=== PATIENT | female | born 1965 | race Hispanic/Latino ===

== ENCOUNTER 2021-11-13 17:45 | Inpatient (IN) | payer SELFPAY ==
[2021-11-13 19:41] LABS: #Monocytes 0.3 thou/uL (0.11-0.59); #Neutrophils 4.6 thou/uL (1.40-6.50); %Basophils 0.2 % (0.0-1.0); %Eosinophils 0.5 % (0.0-10.0); %Lymphocytes 16.4 % (21.0-51.0); %Monocytes 5.3 % (0.0-10.0); %Neutrophils 77.6 % (42.0-75.0); Hemoglobin 5.7 g/dL (12.0-16.0); Mean Corpuscular HGB CONC 29.1 g/dL (32.0-36.0); Mean Corpuscular Volume 72.1 fL (78.0-98.0); Mean Platelet Volume 8.9 fL (7.4-10.4); Platelet Count 112 thou/uL (130-400); RBC Distribution Width 16.7 % (11.5-14.5); White Blood Cell (WBC) Count 5.9 thou/uL (4.8-10.8)
[2021-11-13 19:54] LABS: Anion Gap 14 mmol/L (10-20); BUN (Urea Nitrogen) 6 mg/dL (9.8-20.1); Calc. Creatinine Clearance 0 mL/min (70-130); Calcium 9.4 mg/dL (7.8-10.44); Carbon Dioxide 20 mmol/L (22-29); Chloride 106 mmol/L (98-107); Glucose 114 mg/dL (70-105); Potassium 3.5 mmol/L (3.5-5.1); Sodium 136 mmol/L (136-145)
[2021-11-13 19:58] LABS: Hypochromia MODERATE=16-30 cells (100X) (0-5/hpf); MDiff Complete? YES; Microcytosis SLIGHT = 6-15 cells (100X) (0-5/hpf); Platelet Morphology Comment Appears Decreased; Polychromasia SLIGHT = 2-3 cells (100X) (0-2/hpf); Stomatocytes SLIGHT = 2-5 cells (100X) (0-1/hpf)
[2021-11-13 21:15] LABS: INR-International Normal Ratio 1.2; Prothrombin Time 15.7 sec (12.0-14.7)
[2021-11-13 21:16] LABS: PTT 34.7 sec (22.9-36.1)
[2021-11-13] MEDS ORDERED: Acetaminophen 650 MG Suppository PR PRN (21:32)
[2021-11-13] MEDS ORDERED: HumaLOG 300 UNITS/3 ML VIAL SC PRN (21:32)
[2021-11-13] MEDS ORDERED: Ondansetron ODT 4 MG TAB PO PRN (21:32)
[2021-11-13] MEDS ORDERED: Ondansetron PF 4 MG/2 ML Vial IVP PRN (21:32)
[2021-11-13] MEDS ORDERED: Dextrose 5% in Water 1,000 ML IV PRN (21:32)
[2021-11-13] MEDS ORDERED: Dextrose 50% Abboject 50 ML SYRINGE SLOW IVP PRN (21:32)
[2021-11-13] MEDS ORDERED: Acetaminophen 325 MG TAB PO PRN (21:32)
[2021-11-14 06:19] LABS: #Lymphocytes 1.2 thou/uL (1.20-3.40); #Monocytes 0.3 thou/uL (0.11-0.59); #Neutrophils 2.7 thou/uL (1.40-6.50); %Eosinophils 1.1 % (0.0-10.0); %Lymphocytes 29.3 % (21.0-51.0); %Monocytes 6.6 % (0.0-10.0); Hemoglobin 6.4 g/dL (12.0-16.0); Mean Corpuscular HGB CONC 30.6 g/dL (32.0-36.0); Mean Platelet Volume 8.4 fL (7.4-10.4); Platelet Count 88 thou/uL (130-400); RBC Distribution Width 17.8 % (11.5-14.5); Red Blood Cell (RBC) Count 2.78 mill/uL (4.20-5.40); White Blood Cell (WBC) Count 4.2 thou/uL (4.8-10.8)
[2021-11-14 06:30] LABS: Anion Gap 11 mmol/L (10-20); BUN (Urea Nitrogen) 8 mg/dL (9.8-20.1); Calc. Creatinine Clearance 114 mL/min (70-130); Carbon Dioxide 23 mmol/L (22-29); Chloride 108 mmol/L (98-107); Glucose 125 mg/dL (70-105); Iron 50 ug/dL (50-170); Iron Binding Capacity, Total 549 mcg/dL (265-497); Iron Binding Capacity, Total 574 mcg/dL (265-497); Potassium 3.7 mmol/L (3.5-5.1); Sodium 138 mmol/L (136-145)
[2021-11-14 06:31] LABS: Iron 49 ug/dL (50-170)
[2021-11-14 08:40] VITALS: BMI 26.6
[2021-11-14 10:59] LABS: Reticulocyte Count 2.6 % (0.5-1.5)
[2021-11-14] MEDS ORDERED: IRON SUCROSE COMPLEX 100 MG/5 ML SLOW IVP SCH (11:00)
[2021-11-14 11:14] LABS: Hemoglobin 6.8 g/dL (12.0-16.0); Mean Corpuscular HGB CONC 30.7 g/dL (32.0-36.0); Mean Corpuscular Volume 74.8 fL (78.0-98.0); Mean Platelet Volume 8.9 fL (7.4-10.4); Platelet Count 104 thou/uL (130-400); Red Blood Cell (RBC) Count 2.96 mill/uL (4.20-5.40); White Blood Cell (WBC) Count 3.9 thou/uL (4.8-10.8)
[2021-11-14 11:47] LABS: Band 2 % (5-11); Eosinophils 1 % (0-10); Hypochromia SLIGHT = 6-15 cells (100X) (0-5/hpf); Lymphocytes 26 % (21-51); MDiff Complete? YES; Metamyelocyte 1 % (0-0); Microcytosis SLIGHT = 6-15 cells (100X) (0-5/hpf); Monocytes 5 % (0-10); Neutrophil 65 % (42-75); Platelet Morphology Comment Appears Decreased; Polychromasia SLIGHT = 2-3 cells (100X) (0-2/hpf)
[2021-11-14] MEDS ORDERED: Iron, Sodium Ferric Gluconate 125 MG, Admixture Fee 1 EACH in Sodium Chloride 0.9% 100 ML IVPB SCH (12:15)
[2021-11-14 15:32] LABS: SARS-CoV-2 PCR by NAA Not Detected (NotDetected)
[2021-11-14] MEDS ORDERED: GoLYTELY 4,000 ml Bottle PO SCH (17:00)
[2021-11-14] MEDS: Famotidine 20 MG TAB PO SCH (20:46)
[2021-11-15 04:54] LABS: ALT (SGPT) 21 U/L (8-55); AST (SGOT) 30 U/L (5-34); Albumin 3.4 g/dL (3.5-5.0); Alkaline Phosphatase 94 U/L (40-110); Anion Gap 13 mmol/L (10-20); BUN (Urea Nitrogen) 7 mg/dL (9.8-20.1); Bilirubin, Direct 0.5 mg/dL (0.1-0.3); Bilirubin, Total 1.1 mg/dL (0.2-1.2); Calc. Creatinine Clearance 103 mL/min (70-130); Calcium 9.2 mg/dL (7.8-10.44); Carbon Dioxide 24 mmol/L (22-29); Chloride 106 mmol/L (98-107); Globulin 4.6 g/dL (2.4-3.5); Glucose 128 mg/dL (70-105); Potassium 3.4 mmol/L (3.5-5.1); Sodium 140 mmol/L (136-145)
[2021-11-15 04:56] LABS: #Lymphocytes 0.9 thou/uL (1.20-3.40); #Monocytes 0.4 thou/uL (0.11-0.59); #Neutrophils 2.7 thou/uL (1.40-6.50); %Basophils 0.3 % (0.0-1.0); %Lymphocytes 22.6 % (21.0-51.0); %Monocytes 9.4 % (0.0-10.0); %Neutrophils 66.7 % (42.0-75.0); Hemoglobin 7.8 g/dL (12.0-16.0); Mean Corpuscular HGB CONC 30.1 g/dL (32.0-36.0); Mean Corpuscular Hemoglobin 23.4 pg (27.0-31.0); Mean Corpuscular Volume 77.9 fL (78.0-98.0); Mean Platelet Volume 8.4 fL (7.4-10.4); Platelet Count 95 thou/uL (130-400); RBC Distribution Width 18.7 % (11.5-14.5); Red Blood Cell (RBC) Count 3.33 mill/uL (4.20-5.40); White Blood Cell (WBC) Count 4.1 thou/uL (4.8-10.8)
[2021-11-15 05:14] LABS: HBCM Index 0.08 S/CO (0-0.79); HBSAg Index 0.22 S/CO (0-0.99); Hep A IgM AB Non-Reactive (NonReactive); Hep A IgM S/CO 0.14 S/CO (0-0.79); Hep B Surf Ag Non-Reactive S/CO (NonReactive); Hep C IgG Ab Non-Reactive (NonReactive); Hep C Index 0.25 S/CO (0-0.79); Hepatitis B Core IgM Abs Non-Reactive (NonReactive)
[2021-11-15] MEDS ORDERED: Promethazine HCl 25 MG/ML VIAL IVPB PRN (10:01)
[2021-11-15] MEDS ORDERED: Promethazine HCl 25 MG/ML VIAL IM PRN (10:01)
[2021-11-15] MEDS ORDERED: Ondansetron HCl/PF 4 MG/2 ML Vial IVP PRN (10:01)
[2021-11-15] MEDS: Famotidine 20 MG TAB PO SCH (10:27)
[2021-11-15] MEDS ORDERED: ISOVUE-370 76%-LOCM 1 ML ONE (11:30)
[2021-11-15] MEDS ORDERED: PROPOFOL 200 MG/20 ML VIAL ONE (13:17)
[2021-11-15] MEDS ORDERED: Lidocaine 1% PF 5 ML VIAL ONE (13:17)
[2021-11-15] MEDS: HumaLOG 300 UNITS/3 ML VIAL SC PRN (18:24)
[2021-11-16] MEDS: HumaLOG 300 UNITS/3 ML VIAL SC PRN ×2 (00:43→06:31)
[2021-11-16 05:51] LABS: #Basophils 0.1 thou/uL (0.0-0.2); #Eosinphils 0.1 thou/uL (0.0-0.7); #Monocytes 0.3 thou/uL (0.11-0.59); #Neutrophils 3.1 thou/uL (1.40-6.50); %Basophils 1.2 % (0.0-1.0); %Eosinophils 2.6 % (0.0-10.0); %Lymphocytes 21.8 % (21.0-51.0); %Monocytes 6.8 % (0.0-10.0); %Neutrophils 67.7 % (42.0-75.0); Hemoglobin 7.8 g/dL (12.0-16.0); Mean Corpuscular HGB CONC 32.1 g/dL (32.0-36.0); Mean Corpuscular Hemoglobin 24.9 pg (27.0-31.0); Mean Corpuscular Volume 77.8 fL (78.0-98.0); Mean Platelet Volume 8.9 fL (7.4-10.4); Platelet Count 93 thou/uL (130-400); RBC Distribution Width 19.3 % (11.5-14.5); Red Blood Cell (RBC) Count 3.14 mill/uL (4.20-5.40); White Blood Cell (WBC) Count 4.6 thou/uL (4.8-10.8)
[2021-11-16 06:22] LABS: HIV (1/2) Antibody/Antigen Non-Reactive (NonReactive); HIV 1/2 INDEX 0.08 S/CO (<1.00)
[2021-11-16] MEDS ORDERED: Pantoprazole 40 MG VIAL IVP SCH (09:00)
[2021-11-16 11:33] VITALS: BP 137/73; TEMP 98.3
[2021-11-16] MEDS ORDERED: Iron, Sodium Ferric Gluconate 250 MG in Sodium Chloride 0.9% 250 ML 250 ML IVPB SCH (13:30)
[2021-11-18 18:16] LABS: ANA Symphony (Qualitative) Negative (Negative); ANA Symphony (Quantitative) 0.4 Ratio (< 0.7 Negative); EliA Vaculitis New Method **** NEW METHOD ****; Mitochondrial Ab 1.8 U/mL (<4 Negative); dsDNA IgG Antibody 1.7 IU/mL (<10 Negative)
[2021-11-19 13:13] LABS: Smooth Muscle Total ABS 10 Units (0-19)
[2021-11-20 13:13] LABS: Alpha-1-Antitrypsin 152 mg/dL (101-187)
== END 2021-11-16 13:10 | disposition home or self-care (01) | DRG 812 ==
LOC: ERS 17:45 → NEURO 20:32 → OBSVTOIN 11-14 12:12
PROVIDERS: ADMIT Student in an Organized Health Care Education/Training Program; ATTEND Family Medicine
PROC: 30233N1 Transfusion of Nonautologous Red Blood Cells into Peripheral Vein, Percutaneous Approach (ICD-10-PCS; principal; 2021-11-13)
PROC: 06L38CZ Occlusion of Esophageal Vein with Extraluminal Device, Via Natural or Artificial Opening Endoscopic (ICD-10-PCS; 2021-11-15)
DX: D50.9 Iron deficiency anemia, unspecified (principal); I85.10 Secondary esophageal varices without bleeding; K76.6 Portal hypertension; Z20.822 Contact with and (suspected) exposure to COVID-19; E11.9 Type 2 diabetes mellitus without complications; D69.6 Thrombocytopenia, unspecified; K74.60 Unspecified cirrhosis of liver; I08.1 Rheumatic disorders of both mitral and tricuspid valves; Z79.84 Long term (current) use of oral hypoglycemic drugs; Z79.899 Other long term (current) drug therapy
CPT/HCPCS: 36415; 36416; 36430; 74177; 74183; 80048; 80053; 80074; 80076; 82103; 82104; 82105; 82274; 82390; 82607; 82728; 82746; 83516; 83540; 83550; 83615; 85025; 85046; 85060; 85610; 85730; 86038; 86225; 86850; 86900; 86901; 87389; 93306; 99284; C9113; G0378; J1815; J2704; J2916; J3490; P9016; Q9966; U0003; U0005

== ENCOUNTER 2023-05-14 06:46 | Emergency (ER) | payer OTHER, SELFPAY ==
[2023-05-14 07:22] LABS: #Monocytes 0.4 thou/uL (0.11-0.59); #Neutrophils 4.3 thou/uL (1.40-6.50); %Basophils 0.2 % (0.0-1.0); %Eosinophils 0.5 % (0.0-10.0); %Lymphocytes 21.3 % (21.0-51.0); %Monocytes 5.9 % (0.0-10.0); %Neutrophils 71.6 % (42.0-75.0); Hemoglobin 12.6 g/dL (12.0-16.0); Mean Corpuscular HGB CONC 36.2 g/dL (32.0-36.0); Mean Corpuscular Hemoglobin 33.8 pg (27.0-31.0); Mean Corpuscular Volume 93.3 fl (78.0-98.0); Mean Platelet Volume 10.7 fL (7.4-10.4); RBC Distribution Width 12.6 % (11.5-14.5); Red Blood Cell (RBC) Count 3.73 mill/uL (4.20-5.40)
[2023-05-14 07:24] LABS: Platelet Count 78 10x3/uL (130-400)
[2023-05-14] MEDS ORDERED: Ondansetron PF 4 MG/2 ML Vial ONE ×2 (07:38→11:09)
[2023-05-14] MEDS ORDERED: Morphine 4 MG/ML VIAL ONE (07:38)
[2023-05-14 07:43] LABS: ALT (SGPT) 31 U/L (8-55); AST (SGOT) 36 U/L (5-34); Alkaline Phosphatase 192 U/L (40-110); Anion Gap 15 mmol/L (10-20); BUN (Urea Nitrogen) 7 mg/dL (9.8-20.1); Calc. Creatinine Clearance 0 mL/min (70-130); Calcium 9.5 mg/dL (7.8-10.44); Carbon Dioxide 21 mmol/L (22-29); Chloride 102 mmol/L (98-107); Estimated GFR 104; Globulin 4.7 g/dL (2.4-3.5); Glucose 247 mg/dL (70-105); Lipase 35 U/L (8-78); Potassium 3.7 mmol/L (3.5-5.1); Protein, Total 8.7 g/dL (6.0-8.3); Sodium 134 mmol/L (136-145)
[2023-05-14] MEDS ORDERED: Iopamidol-370 76% 500 ML MDV (1 ML CHARGE) ONE (12:21)
[2023-05-14] MEDS ORDERED: diphenhydrAMINE 50 MG/ML VIAL ONE (12:54)
[2023-05-14] MEDS ORDERED: Metoclopramide HCl 10 MG/2 ML VIAL ONE (12:54)
[2023-05-14] MEDS ORDERED: diphenhydrAMINE 50 MG CAP ONE (12:54)
== END 2023-05-14 14:24 | disposition home or self-care (01) ==
LOC: ERS 06:46
DX: R10.11 Right upper quadrant pain (principal); E11.9 Type 2 diabetes mellitus without complications
CPT/HCPCS: 36415; 74177; 76705; 80053; 83690; 85025; 96361; 96365; 96375; 96376; J1200; J2270; J2405; J2765; Q9967

== ENCOUNTER 2023-11-14 16:26 | Emergency (ER) | payer OTHER, SELFPAY | END 2023-11-14 17:53 | disposition home or self-care (01) | LOC: ERS 16:26 | DX: L03.116 Cellulitis of left lower limb (principal); E11.9 Type 2 diabetes mellitus without complications; Z79.899 Other long term (current) drug therapy | CPT/HCPCS: 99283 ==

== ENCOUNTER 2023-12-23 09:48 | Outpatient (CLI) | payer OTHER | END 2023-12-23 09:49 | disposition home or self-care (01) | LOC: BICULT 09:48 | PROVIDERS: ATTEND Internal Medicine Gastroenterology | DX: K74.60 Unspecified cirrhosis of liver (principal); K76.89 Other specified diseases of liver; R16.1 Splenomegaly, not elsewhere classified | CPT/HCPCS: 76705 ==

== ENCOUNTER 2024-03-31 12:49 | Observation (INO) | payer OTHER ==
[~2024-03-31 12:49] MED LIST: Iopamidol-370 76% 500 ML MDV (1 ML CHARGE) ONE
[2024-03-31] MEDS ORDERED: Sodium Chloride 0.9% 100 ML ONE (13:56)
[2024-03-31] MEDS ORDERED: cefTRIAXone (ROCEPHIN) 1 GM VIAL ONE (13:57)
[2024-03-31] MEDS ORDERED: Pantoprazole 80 MG, Admixture Fee 1 EACH in Sodium Chloride 0.9% 100 ML IVPB SCH (14:00)
[2024-03-31] MEDS ORDERED: Octreotide Acetate 1,250 MCG in Sodium Chloride 0.9% 250 ML 250 ML IVPB SCH (14:00)
[2024-03-31] MEDS ORDERED: Ondansetron PF 4 MG/2 ML Vial ONE ×2 (14:03→17:16)
[2024-03-31 14:10] LABS: #Basophils Less than 0.03 10x3/uL (0.0-0.2); %Eosinophils 0.7 % (0.0-10.0); %Lymphocytes 11.2 % (21.0-51.0); %Monocytes 5.1 % (0.0-10.0); %Neutrophils 82.6 % (42.0-75.0); Hematocrit 38.8 % (36.0-47.0); Hemoglobin 14.4 g/dL (12.0-16.0); Mean Corpuscular HGB CONC 37.1 g/dL (32.0-36.0); Mean Corpuscular Hemoglobin 34.6 pg (27.0-31.0); Mean Corpuscular Volume 93.3 fL (78.0-98.0); Mean Platelet Volume 10.7 fL (7.4-10.4); Platelet Count 90 10x3/uL (130-400); RBC Distribution Width 12.3 % (11.5-14.5); Red Blood Cell (RBC) Count 4.16 mill/uL (4.20-5.40)
[2024-03-31 14:16] LABS: INR-International Normal Ratio 1.2; PTT 33.5 sec (22.9-36.1); Prothrombin Time 14.8 sec (12.0-14.7)
[2024-03-31 14:30] LABS: Platelet Adequacy Comment Platelets Decreased
[2024-03-31] MEDS ORDERED: Morphine 4 MG/ML VIAL ONE (14:50)
[2024-03-31 15:14] LABS: Globulin 5.1 g/dL (2.4-3.5)
[2024-03-31 15:18] LABS: ALT (SGPT) 35 U/L (8-55); AST (SGOT) 43 U/L (5-34); Albumin 3.6 g/dL (3.5-5.0); Alkaline Phosphatase 172 U/L (40-110); Anion Gap 16 mmol/L (10-20); BUN (Urea Nitrogen) 15 mg/dL (9.8-20.1); Bilirubin, Total 1.5 mg/dL (0.2-1.2); Calc. Creatinine Clearance 0 mL/min (70-130); Calcium 9.2 mg/dL (7.8-10.44); Carbon Dioxide 20 mmol/L (22-29); Chloride 104 mmol/L (98-107); Estimated GFR 103; Glucose 312 mg/dL (70-105); Lipase 38 U/L (8-78); Potassium 3.8 mmol/L (3.5-5.1); Protein, Total 8.7 g/dL (6.0-8.3); Sodium 136 mmol/L (136-145)
[2024-03-31] MEDS ORDERED: Acetaminophen 650 MG Suppository PR PRN (17:20)
[2024-03-31] MEDS ORDERED: Ondansetron ODT 4 MG TAB PO PRN (17:20)
[2024-03-31 17:47] LABS: Hematocrit 38.6 % (36.0-47.0); Hemoglobin 13.9 g/dL (12.0-16.0)
[2024-03-31] MEDS ORDERED: Dextrose 5% in Water 1,000 ML IV PRN (18:21)
[2024-03-31] MEDS ORDERED: Dextrose 50% Abboject 50 ML SYRINGE SLOW IVP PRN (18:21)
[2024-03-31] MEDS ORDERED: Glucagon 1 MG/ML KIT IM PRN (18:21)
[2024-03-31 18:54] LABS: Hemoglobin A1c 10.7 % (4.0-6.0)
[2024-03-31 19:55] VITALS: BMI 23.3
[2024-03-31] MEDS: Ondansetron PF 4 MG/2 ML Vial IVP PRN (21:11)
[2024-03-31] MEDS: Acetaminophen 325 MG TAB PO PRN (21:12)
[2024-03-31] MEDS: Sodium Chloride 0.9% 1,000 ML IV SCH (21:13)
[2024-03-31] MEDS ORDERED: HumaLOG 300 UNITS/3 ML VIAL SC PRN ×2 (23:19)
[2024-04-01] MEDS: Pantoprazole 80 MG in Sodium Chloride 0.9% 100 ML IVPB SCH (00:58)
[2024-04-01] MEDS ORDERED: Octreotide Acetate 1,250 MCG in Sodium Chloride 0.9% 250 ML 250 ML IVPB SCH (02:00)
[2024-04-01 05:00] LABS: #Basophils Less than 0.03 10x3/uL (0.0-0.2); %Eosinophils 1.6 % (0.0-10.0); %Lymphocytes 28.7 % (21.0-51.0); %Monocytes 6.5 % (0.0-10.0); %Neutrophils 62.9 % (42.0-75.0); Hemoglobin 12.3 g/dL (12.0-16.0); Mean Corpuscular HGB CONC 36.2 g/dL (32.0-36.0); Mean Corpuscular Hemoglobin 34.7 pg (27.0-31.0); Mean Platelet Volume 10.8 fL (7.4-10.4); Platelet Count 64 10x3/uL (130-400); RBC Distribution Width 12.5 % (11.5-14.5); Red Blood Cell (RBC) Count 3.54 mill/uL (4.20-5.40)
[2024-04-01 05:09] LABS: Anion Gap 13 mmol/L (10-20); BUN (Urea Nitrogen) 14 mg/dL (9.8-20.1); Calc. Creatinine Clearance 87 mL/min (70-130); Calcium 8.1 mg/dL (7.8-10.44); Carbon Dioxide 20 mmol/L (22-29); Chloride 108 mmol/L (98-107); Estimated GFR 103; Glucose 219 mg/dL (70-105); Magnesium 1.5 mg/dL (1.6-2.6); Potassium 3.3 mmol/L (3.5-5.1); Sodium 138 mmol/L (136-145)
[2024-04-01] MEDS: Sodium Chloride 0.9% 500 ML IV SCH (05:47)
[2024-04-01] MEDS: Magnesium 2 GM/50 ML(in water) 2 GM in Premix 1 BAG IVPB SCH (05:47)
[2024-04-01] MEDS: Potassium Chloride 20 MEQ in Premix 1 BAG IVPB SCH (06:12)
[2024-04-01] MEDS ORDERED: Pantoprazole 80 MG, Admixture Fee 1 EACH in Sodium Chloride 0.9% 100 ML IVPB SCH (07:15)
[2024-04-01 07:54] VITALS: BMI 23.3
[2024-04-01] MEDS ORDERED: PROPOFOL 20 ML ONE (09:15)
[2024-04-01 16:06] VITALS: BP 103/55; TEMP 98.6
[2024-04-01] MEDS: Alogliptin 6.25 MG TAB PO SCH (16:47)
[2024-04-01] MEDS: metFORMIN 500 MG TAB PO SCH (16:48)
[2024-04-01] MEDS ORDERED: [UNRECOGNIZED DRUG - OTHER] PO SCH (17:00)
[2024-04-01] MEDS ORDERED: SITAGLIPTIN PHOS PO SCH (17:00)
[2024-04-01] MEDS ORDERED: METFORMIN HCL PO SCH (17:00)
[2024-04-01 19:22] LABS: Magnesium 1.9 mg/dL (1.6-2.6); Potassium 3.8 mmol/L (3.5-5.1)
[2024-04-01] MEDS ORDERED: glipiZIDE 10 MG TAB PO SCH (21:00)
[2024-04-02] MEDS ORDERED: Ferrous Sulfate 325 MG TAB PO SCH (08:00)
[2024-04-02] MEDS ORDERED: Non-Formulary Item 1 EACH (Ferrous Sulfate [Ferrous Sulfate] 325 MG Tab) PO SCH (09:00)
[2024-04-02] MEDS ORDERED: Nadolol 40 MG TAB PO SCH (09:00)
[2024-04-02] MEDS ORDERED: Pantoprazole DR 40 MG TAB PO SCH (09:00)
== END 2024-04-01 19:09 | disposition home or self-care (01) ==
LOC: ERS 12:49 → 2NO 17:28 → INTOOBSV 17:28
PROVIDERS: ADMIT Internal Medicine; ATTEND Family Medicine
PROC: 0DJ08ZZ Inspection of Upper Intestinal Tract, Via Natural or Artificial Opening Endoscopic (ICD-10-PCS; principal; 2024-04-01)
PROC: B246ZZZ Ultrasonography of Right and Left Heart (ICD-10-PCS; 2024-04-01)
DX: I85.10 Secondary esophageal varices without bleeding (principal); K75.81 Nonalcoholic steatohepatitis (NASH); K74.60 Unspecified cirrhosis of liver; R01.1 Cardiac murmur, unspecified; K92.0 Hematemesis; K76.6 Portal hypertension; D69.6 Thrombocytopenia, unspecified; K31.89 Other diseases of stomach and duodenum; K22.10 Ulcer of esophagus without bleeding; E11.9 Type 2 diabetes mellitus without complications; D64.9 Anemia, unspecified; Z90.49 Acquired absence of other specified parts of digestive tract; Z79.84 Long term (current) use of oral hypoglycemic drugs; Z79.899 Other long term (current) drug therapy; Z87.59 Personal history of other complications of pregnancy, childbirth and the puerperium
CPT/HCPCS: 36415; 36416; 74177; 80048; 80053; 83036; 83690; 83735; 83880; 85025; 85610; 85730; 86850; 86900; 86901; 93005; 93306; 94760; C9113; J0696; J2270; J2354; J2405; J2704; J3475; J3480; J3490; J7030; J7050; Q9967

== ENCOUNTER 2024-11-29 07:55 | Outpatient (CLI) | payer OTHER | END 2024-11-29 07:56 | disposition home or self-care (01) | LOC: ULT 07:55 | PROVIDERS: ATTEND Physician Assistant Medical | DX: I85.00 Esophageal varices without bleeding (principal); K74.60 Unspecified cirrhosis of liver; R16.1 Splenomegaly, not elsewhere classified | CPT/HCPCS: 76705 ==

== ENCOUNTER 2025-08-02 12:50 | Emergency (ER) | payer OTHER, SELFPAY | END 2025-08-02 14:48 | disposition home or self-care (01) | LOC: ERS 12:50 | DX: S23.41XA Sprain of ribs, initial encounter (principal); E11.9 Type 2 diabetes mellitus without complications; W01.198A Fall on same level from slipping, tripping and stumbling with subsequent striking against other object, initial encounter | CPT/HCPCS: 71046 ==